=== PATIENT | female | born 1970 | race Caucasian/White ===

== ENCOUNTER 2021-02-10 16:01 | Inpatient (IN) ==
[2021-02-10] MEDS ORDERED: SODIUM CHLORIDE 0.9% 2,000 ML IV STA (16:23)
[2021-02-10] MEDS ORDERED: ONDANSETRON 4 MG/2 ML VIAL IV ONE (16:23)
[2021-02-10 17:11] LABS: Basophils % 0.2 % (0.0-0.8); Eosinophils % 0.1 % (0.00-10.9); Hematocrit 37.5 VOL% (35.7-47.0); Hemoglobin 12.3 GM/DL (12.0-16.0); Immature Granulocytes % 0.6 %; Immature Granulocytes Absolute 0.09 #; Lymphocytes # 1.2 10*3/uL (1.4-4.0); Lymphocytes % 8.2 % (21.3-54.2); Mean Corpuscular HGB Conc 32.8 GM/DL (32-36); Mean Corpuscular Volume 90.8 FL (87-102); Monocytes % 8.9 % (1.7-12.7); Platelet Count 368 T/CUMM (130-400); Red Blood Count 4.13 MC/CUMM (3.8-5.5); Red Cell Distribution Width 12.6 % (9.3-17.3); White Blood Count 14.3 T/CUMM (4-12)
[2021-02-10 17:30] LABS: Albumin 2.7 G/DL (3.4-5.0); Bilirubin,Total 0.8 MG/DL (0.20-1.00); Calcium 8.8 MG/DL (8.5-10.1); Osmolality,Calculated 275.1 MOS/KG (273-304); Potassium 3.8 MMOL/L (3.5-5.1); Total Protein 6.5 G/DL (6.4-8.2)
[2021-02-10 17:36] LABS: ABG Base Excess -13.4 MMOL/L (-2.5-2.5); ABG HCO3 14.2 MMOL/L (20-26); ABG Oxygen Saturation 98.4 % (95-100); ABG PCO2 21.7 MM HG (35-48); ABG PH 7.321 (7.35-7.45); ABG TCO2 10.1 MMOL/L (23-27)
[2021-02-10] MEDS ORDERED: ALBUTEROL 2.5 MG/3 ML NEB RESP TX PRN (17:55)
[2021-02-10] MEDS ORDERED: MAGNESIUM SULF RIDER 4 GM/100 ML PREMIX IV PRN (18:00)
[2021-02-10] MEDS ORDERED: MAGNESIUM SULF RIDER 2 GM/50 ML PREMIX IV PRN (18:00)
[2021-02-10] MEDS ORDERED: LACTATED RINGERS 1,000 ML IV SCH (18:00)
[2021-02-10] MEDS ORDERED: PANTOPRAZOLE 40 MG VIAL IV SCH (18:00)
[2021-02-10] MEDS ORDERED: DOPamine 800 MG/250 ML PREMIX IV SCH (18:00)
[2021-02-10] MEDS ORDERED: SODIUM CHLORIDE 0.9% IV PRN (18:00)
[2021-02-10] MEDS ORDERED: INSULIN REGULAR 100 UNIT/ML IV ONE (18:00)
[2021-02-10] MEDS ORDERED: SODIUM BICARB INJ 100 MEQ in STERILE WATER INJ 400 ML IV PRN (18:00)
[2021-02-10] MEDS ORDERED: SODIUM CHLORIDE 0.9% 1,000 ML IV ONE (18:00)
[2021-02-10] MEDS ORDERED: DEXTROSE 50% 25 GM/50 ML VIAL IV PRN ×2 (18:00)
[2021-02-10] MEDS ORDERED: SODIUM PHOSPHATE IV PRN (18:00)
[2021-02-10] MEDS ORDERED: INSULIN REGULAR DRIP 100 ML IV SCH (19:30)
[2021-02-10] MEDS: ONDANSETRON 4 MG/2 ML VIAL IV PRN (20:05)
[2021-02-10 20:16] LABS: Osmolality,Calculated 280.1 MOS/KG (273-304); Potassium 4.5 MMOL/L (3.5-5.1)
[2021-02-10] MEDS: CYCLOBENZAPRINE 10 MG TABLET PO PRN (21:04)
[2021-02-10] MEDS: SODIUM CHLORIDE 0.9% 1,000 ML IV SCH (21:05)
[2021-02-10] MEDS: PROMETHAZINE INJ 25 MG in SODIUM CHLORIDE 0.9% 50 ML IV PRN (21:35)
[2021-02-10] MEDS: DEXTROSE 5% LACTATED RINGERS 1,000 ML IV SCH (22:15)
[2021-02-10 22:45] LABS: Bacteria,Urine Occasional /HPF (Few); Bilirubin,Urine Negative (Negative); Blood, Urine Negative (Negative); Glucose,Urine (UA) >=500 mg/dL (Negative); Granular Casts,Urine 1 /LPF (0-1); Hyaline Casts,Urine 14 /LPF (0-3); Ketones,Urine 80 mg/dL (Negative); Mucus,Urine Occasional /LPF (Occasional); Nitrite,Urine Negative (Negative); Protein,Urine 30 MG/DL; RBC,Urine 1 /HPF (0-4); Squamous Epithelial Cell,Urine Occasional /HPF (0-10); Urine Appearance CLEAR (Clear); Urine Color Yellow (Yellow); Urine Specific Gravity 1.015 (1.001-1.035); Urine Urobilinogen < 2.0 EU/DL (0.2-1.0)
[2021-02-10] MEDS: NITROFURANTOIN MACRO/MONO 100 MG CAPSULE PO SCH (22:58)
[2021-02-10] MEDS: INSULIN GLARGINE 100 UNIT/ML SUBCUT SCH (22:58)
[2021-02-10] MEDS ORDERED: SODIUM CHLORIDE 0.9% 1,000 ML IV SCH (23:00)
[2021-02-10 23:33] LABS: Calcium 7.3 MG/DL (8.5-10.1); Osmolality,Calculated 278.7 MOS/KG (273-304); Potassium 3.8 MMOL/L (3.5-5.1)
[2021-02-11] MEDS: DEXTROSE 5% NACL 0.9% 1,000 ML IV SCH ×3 (01:40→12:51)
[2021-02-11] MEDS: SODIUM CHLORIDE 0.9% 1,000 ML IV SCH (01:58)
[2021-02-11 02:49] LABS: Osmolality,Calculated 279.4 MOS/KG (273-304); Potassium 3.9 MMOL/L (3.5-5.1)
[2021-02-11] MEDS: POTASSIUM CHLORIDE RIDER 10 MEQ/100 ML PREMIX IV PRN ×2 (04:16→05:24)
[2021-02-11] MEDS: PROMETHAZINE INJ 25 MG in SODIUM CHLORIDE 0.9% 50 ML IV PRN (04:17)
[2021-02-11 04:54] LABS: Basophils % 0.3 % (0.0-0.8); Eosinophils # 0.1 10*3/uL (0.0-0.87); Eosinophils % 1.2 % (0.00-10.9); Hematocrit 29.7 VOL% (35.7-47.0); Immature Granulocytes % 0.8 %; Immature Granulocytes Absolute 0.06 #; Lymphocytes # 1.2 10*3/uL (1.4-4.0); Lymphocytes % 15.2 % (21.3-54.2); Mean Corpuscular HGB Conc 32.7 GM/DL (32-36); Mean Platelet Volume 9.1 FL (9.6-12.0); Monocytes % 8.2 % (1.7-12.7); Neutrophils % 74.3 % (38.7-73.9); Red Cell Distribution Width 12.8 % (9.3-17.3)
[2021-02-11 04:55] LABS: Platelet Count 275 T/CUMM (130-400); White Blood Count 7.7 T/CUMM (4-12)
[2021-02-11 04:56] LABS: Hemoglobin 9.7 GM/DL (12.0-16.0); Red Blood Count 3.23 MC/CUMM (3.8-5.5)
[2021-02-11 05:12] LABS: Calcium 7.1 MG/DL (8.5-10.1); Osmolality,Calculated 276.8 MOS/KG (273-304); Potassium 3.4 MMOL/L (3.5-5.1)
[2021-02-11] MEDS: DEXTROSE 5% LACTATED RINGERS 1,000 ML IV SCH ×2 (05:29→19:20)
[2021-02-11] MEDS: DEXTROSE 5% KCL 20 MEQ 20 MEQ/1,000 ML BAG IV SCH ×2 (06:29→12:51)
[2021-02-11 07:37] LABS: Calcium 7.2 MG/DL (8.5-10.1); Osmolality,Calculated 275.8 MOS/KG (273-304); Potassium 3.7 MMOL/L (3.5-5.1)
[2021-02-11] MEDS: ESCITALOPRAM 10 MG TABLET PO SCH (08:03)
[2021-02-11] MEDS: [UNRECOGNIZED DRUG - OTHER] PO SCH (08:04)
[2021-02-11] MEDS ORDERED: INSULIN GLARGINE 100 UNIT/ML SUBCUT ONE (08:29)
[2021-02-11 10:26] LABS: Calcium 7.1 MG/DL (8.5-10.1); Potassium 3.8 MMOL/L (3.5-5.1)
[2021-02-11] MEDS: NITROFURANTOIN MACRO/MONO 100 MG CAPSULE PO SCH ×2 (10:34→20:40)
[2021-02-11] MEDS: SODIUM CHLOR 0.45% KCL 20 MEQ 20 MEQ/1,000 ML BAG IV SCH (12:33)
[2021-02-11] MEDS: INSULIN REGULAR 100 UNIT/ML SUBCUT SCH ×3 (12:34→23:20)
[2021-02-11 14:19] LABS: Calcium 7.1 MG/DL (8.5-10.1); Osmolality,Calculated 278.5 MOS/KG (273-304); Potassium 3.4 MMOL/L (3.5-5.1)
[2021-02-11] MEDS: CYCLOBENZAPRINE 10 MG TABLET PO PRN ×2 (17:45→23:14)
[2021-02-11] MEDS: ONDANSETRON 4 MG/2 ML VIAL IV PRN (20:40)
[2021-02-11] MEDS: INSULIN GLARGINE 100 UNIT/ML SUBCUT SCH (20:41)
[2021-02-12] MEDS: SODIUM CHLOR 0.45% KCL 20 MEQ 20 MEQ/1,000 ML BAG IV SCH ×4 (05:32→17:44)
[2021-02-12] MEDS: INSULIN REGULAR 100 UNIT/ML SUBCUT SCH ×3 (05:58→17:55)
[2021-02-12] MEDS: CYCLOBENZAPRINE 10 MG TABLET PO PRN ×2 (09:01→20:43)
[2021-02-12 09:37] LABS: Calcium 7.7 MG/DL (8.5-10.1); Osmolality,Calculated 279.7 MOS/KG (273-304); Potassium 3.5 MMOL/L (3.5-5.1)
[2021-02-12] MEDS: NITROFURANTOIN MACRO/MONO 100 MG CAPSULE PO SCH ×2 (09:47→20:43)
[2021-02-12] MEDS: PANTOPRAZOLE 40 MG TABLET PO SCH (09:48)
[2021-02-12] MEDS: ESCITALOPRAM 10 MG TABLET PO SCH (09:48)
[2021-02-12] MEDS: [UNRECOGNIZED DRUG - OTHER] PO SCH (09:49)
[2021-02-12] MEDS: INSULIN GLARGINE 100 UNIT/ML SUBCUT SCH (20:44)
[2021-02-13] MEDS: INSULIN REGULAR 100 UNIT/ML SUBCUT SCH ×3 (00:15→13:57)
[2021-02-13] MEDS: SODIUM CHLOR 0.45% KCL 20 MEQ 20 MEQ/1,000 ML BAG IV SCH ×3 (00:16→13:57)
[2021-02-13] MEDS: CYCLOBENZAPRINE 10 MG TABLET PO PRN (05:53)
[2021-02-13 07:05] LABS: Basophils % 0.5 % (0.0-0.8); Eosinophils # 0.2 10*3/uL (0.0-0.87); Eosinophils % 3.2 % (0.00-10.9); Hemoglobin 9.6 GM/DL (12.0-16.0); Immature Granulocytes % 0.5 %; Immature Granulocytes Absolute 0.03 #; Lymphocytes # 1.1 10*3/uL (1.4-4.0); Lymphocytes % 16.5 % (21.3-54.2); Mean Corpuscular HGB Conc 33.1 GM/DL (32-36); Mean Corpuscular Volume 90.3 FL (87-102); Mean Platelet Volume 9.4 FL (9.6-12.0); Monocytes % 10.4 % (1.7-12.7); Neutrophils % 68.9 % (38.7-73.9); Platelet Count 209 T/CUMM (130-400); Red Blood Count 3.21 MC/CUMM (3.8-5.5); Red Cell Distribution Width 12.8 % (9.3-17.3); White Blood Count 6.6 T/CUMM (4-12)
[2021-02-13 07:20] LABS: Osmolality,Calculated 289.4 MOS/KG (273-304); Potassium 4.1 MMOL/L (3.5-5.1)
[2021-02-13] MEDS: NITROFURANTOIN MACRO/MONO 100 MG CAPSULE PO SCH (09:35)
[2021-02-13] MEDS: ESCITALOPRAM 10 MG TABLET PO SCH (09:35)
[2021-02-13] MEDS: PANTOPRAZOLE 40 MG TABLET PO SCH (09:35)
[2021-02-13] MEDS: [UNRECOGNIZED DRUG - OTHER] PO SCH (09:40)
[2021-02-13 13:06] VITALS: BP 121/64
== END 2021-02-13 15:56 | disposition home or self-care (01) | DRG 639 ==
LOC: N.ED 16:01 → N.EDINP 17:55 → SUATTDRO 17:55 → N.ICU 19:06 → N.4E 02-11 19:00
PROVIDERS: ADMIT Internal Medicine; ATTEND Internal Medicine